=== PATIENT | male | born 1935 | race Caucasian/White ===

== ENCOUNTER → 2020-05-19 | Outpatient (REF) | payer MEDICARE | LOC: M LAB REF 12:10 | PROVIDERS: ATTEND Family Medicine | DX: C61 Malignant neoplasm of prostate (principal) ==

== ENCOUNTER → 2021-11-19 | Outpatient (REF) | payer MEDICARE ==
[2021-11-20 23:07] LABS: PSA % FREE 22.3 % (.); PSA FREE 0.89 ng/mL
== END ==
LOC: M LAB REF 12:07
PROVIDERS: ATTEND Family Medicine
DX: R97.20 Elevated prostate specific antigen [PSA] (principal)

== ENCOUNTER 2023-08-11 11:14 | Emergency (ER) | payer MEDICARE ==
[~2023-08-11] VITALS: Ht 175.3 cm; Wt 70.0 kg
[~2023-08-11 11:14] MED LIST: CYAN500T14 PO; FAMO20TA PO; FINA5TAB2 PO; FLOM0.4C39 PO; LISI20TA33 PO; PEPT262C2 PO; eye drop
[2023-08-11] MEDS ORDERED: BIMA0.036 (11:29)
[2023-08-11 12:12] LABS: BASO % 0.2 % (0.0-1.0); EOS % 0.1 % (0.0-3.0); HEMATOCRIT 39.3 % (42.0-52.0); LYMPH # 0.7 10^3/uL (1.5-5.0); LYMPH % 5.8 % (24.0-44.0); MEAN CORPUSCULAR HEMOGLOBIN 32.8 pg (27.0-33.0); MEAN CORPUSCULAR HGB CONC 33.1 g/dl (32.0-36.5); MEAN CORPUSCULAR VOLUME 99.2 fl (80.0-96.0); MONO # 0.9 10^3/uL (0.0-0.8); MONO % 7.6 % (2.0-8.0); NEUTROPHILS # 9.9 10^3/uL (1.5-8.5); NEUTROPHILS % 85.8 % (36.0-66.0); PLATELET COUNT, AUTOMATED 201 10^3/uL (150-450); RED BLOOD COUNT 3.96 10^6/uL (4.30-6.10); WHITE BLOOD COUNT 11.5 10^3/uL (4.0-10.0)
[2023-08-11 12:41] LABS: ALBUMIN 3.3 G/DL (3.2-5.2); ALKALINE PHOSPHATASE 108 U/L (46-116); ALT/SGPT 60 U/L (7.0-40); AST/SGOT 36 U/L (<34); BILIRUBIN,DIRECT 0.6 MG/DL (<0.4); BILIRUBIN,TOTAL 1.3 MG/DL (0.3-1.2); BLOOD UREA NITROGEN 51 MG/DL (9-23); CALCIUM LEVEL 8.7 MG/DL (8.3-10.6); CARBON DIOXIDE LEVEL 20 MMOL/L (20-31); CHLORIDE LEVEL 113 MMOL/L (98-107); GLOMERULAR FILTRATION RATE > 60.0 (>35); GLUCOSE, FASTING 139 MG/DL (74-106); POTASSIUM SERUM 4.1 MMOL/L (3.5-5.1); SODIUM LEVEL 144 MMOL/L (136-145); TOTAL PROTEIN 6.1 G/DL (5.7-8.2)
[2023-08-11 12:58] LABS: FREE T4 1.01 NG/DL (0.89-1.76)
[2023-08-11 13:06] LABS: PROCALCITONIN 0.06 ng/ml
[2023-08-11] MEDS ORDERED: AMOX875T2 PO (14:05)
[2023-08-11] MEDS ORDERED: MUCI1TAB16 PO (14:05)
[2023-08-11 14:27] VITALS: BP 136/89; TEMP 97.5; O2SAT 98
[2023-08-11] MEDS: AUGMENTIN 875 MG TAB PO ONE (14:33)
== END 2023-08-11 14:48 | disposition home or self-care (01) ==
LOC: EDBD 11:14 → M ED 11:14
DX: J01.90 Acute sinusitis, unspecified (principal)